=== PATIENT | female | born 1995 | race Caucasian/White ===

== ENCOUNTER 2016-04-30 19:20 | Emergency (ER) | payer SELFPAY ==
[2016-04-30 20:50] VITALS: BMI 22.8
--- NOTE | 2016-04-30 22:00 | US ---
EXAM: US Biophysical Profile Without Non-Stress Testing. CLINICAL HISTORY: 20 years old, female; Pain; Pain indication: Abd pain; ; Additional info: Undocumented pnc TECHNIQUE: Real-time ultrasound of the maternal pelvis for biophysical profile evaluation with image documentation. EXAM DATE/TIME: 04/30/2016 8:51 PM COMPARISON: There are no prior studies for comparison. FINDINGS: Fetus: There is a single intrauterine gestation in cephalic presentation. There is a heart rate of 145 beats per minute. Placenta is anterior. Amniotic fluid index measures 12.34 cm. Using today's criteria, gestational age is 33 weeks 5 days. Estimated weight is 2187 g. Biophysical profile: Fetus was evaluated for movement, breathing, tone and fluid volume. A score of 2/2 was given for each parameter Cervix: Cervix measures approximately 5 cm in length IMPRESSION: Normal 09/17 biophysical profile; 33 week 5 day single cephalic fetus, estimated date of delivery 06/13/16
--- NOTE | 2016-05-03 16:38 | OBHP ---
Datetime: 04/30/2016 22:12 IP Adm Impression: , intrauterine ; No Active Labor IP Adm Impression Other: abd pain IP Admit Plan: Discharge home Pelvic Type - PN: Adequate Extremities - PN: Normal Abdomen - PN: Normal Back - PN: Normal Breast - PN: Not Done Lungs - PN: Normal Heart - PN: Normal Thyroid - PN: Normal General - PN: Normal Weight - Estimated: 2187 FHR - Baseline A Provider: 136 Gestation - Est Wks by US: 33.5 Vital Signs Provider: Reviewed; Within Normal Limits IP Chief Complaint: Maternal discomfort NICHD Decel Fetus A IP Provider: None DTRs - PN: Not Done Datetime: 04/30/2016 20:30 IP Chief Complaint Other: abd pain Admit Comment, IP Provider: Encounter done with the help of Vinja top spotter Ulisses S: [id number] 20 y/o F IUP at 33.4w by LMP presents to the hosp transferred from [facility] of abd pain for the past 4 days. Pain moves from upper abd to lower abd. Denies VB, LOF, nausea or vomiting. Patient [place] been [place] the country for the past 3 weeks and has not had PNC in the [place]. Nesha carlisle was interviewed with and without the present in the room. She was evaluated at [facility] [place] @ 16:00 today. Vaginal exam showed: No able to palpate cervix, no VB or VD. Labs: UA: clear, LeukEst small, WBC 2-5, Bact few, Nitrate neg. CBC: hgb 10.4, hct 29.6, wbc 9.8 PT/INR: 10/0.93 PTT 24.3 CMP: Gluc 88, BUN 6, AST 22, ALT 9 Allergies: NKA Meds: None OB Hx: 2 previous at 8 months and 2 weeks and 2kg Wt as per patient. First, 4 and half y /a and second, 2 and a [age] Y/A. As per patient she received PNC in her country. PMHx: Denies Sxhx: denies SHx: denies etoh, tobacco or drugs PE: See above A: 20 y/o IUP at 33.4w by LMP No active labor P: -Observation - monitoring -BPP Case evaluated with Dr Uche Ko PGY1 OB hospitalist note...earlier I rec'd call from Dr Talamantes from [facility]. Pt was noted to be 28w an d had a manual cervical exam which was reported to be closed. She had lower abd pain so she was brou ght to [facility] for OB evaluation. No F/U/D. No N/V/D. Hx done by me using translating service...pt's was excused and interview continued...pt is safe and had care in her country. SHe does not have any records. SSE: closed EFM no CTX Will obtain BPP/EFW...also she has not sought OB care in [place]...pt given phone numbers for [facility] . [facility] - PN: Normal Presentation-Admit: Vertex IP Fetus A Comments: Sono cephalic Comments, ACOG Physical Exam: speculum exam done by Dr Ivey: Cervix closed. NICHD Variability Prov Fetus A: Moderate 6-25bpm NICHD Accel Fetus A IP Provider: 15X15 FHR Category Provider Fetus A: Category I Genitourinary Exam: Normal
== END 2016-04-30 22:30 | disposition home or self-care (01) ==
LOC: H.EROB2 19:20
DX: O47.03 False labor before 37 completed weeks of gestation, third trimester (principal); Z3A.33 33 weeks gestation of pregnancy

== ENCOUNTER 2016-05-29 10:05 | Inpatient (IN) | payer MEDICAID, OTHER ==
[2016-05-29] MEDS ORDERED: Lactated Ringer's 1,000 ML IV SCH (12:15)
[2016-05-29 13:10] LABS: BASO # 0.1 K/uL (0.0-0.2); BASO % 0.5 % (0.0-2.0); EOS # 0.1 K/uL (0.0-0.7); EOS % 1.1 % (0.0-4.0); HEMATOCRIT 32.4 % (34.0-47.0); LYMPH # 2.3 K/uL (1.0-4.3); MEAN CELL VOLUME 70.4 fl (81.0-99.0); MEAN CORPUSCULAR HEMOGLOBIN 24.1 pg (27.0-31.0); MEAN CORPUSCULAR HGB CONC 34.2 g/dL (33.0-37.0); MEAN PLATELET VOLUME 9.3 fl (7.2-11.7); MONO # 0.8 K/uL (0.0-0.8); MONO % 6.9 % (0.0-10.0); NEUT # 8.1 K/uL (1.8-7.0); NEUT % 71.5 % (50.0-75.0); NRBC % 0.1 % (0.0-0.0); RED CELL DISTRIBUTION WIDTH 16.1 % (11.5-14.5); WHITE BLOOD COUNT 11.3 K/uL (4.8-10.8)
--- NOTE | 2016-05-29 13:41 | OBADHP ---
Datetime: 05/29/2016 11:45 Admit Comment, IP Provider: , EGA btw 36+6 and 37+6wks presents c/o suspected ROM at 09:00, with contractions. Moderate amount of pain. Denies bleeding, reports +FM. LMP: 09/15/15.EDC by LMP: 06/20/16. 3rd trimester u/s with EDC: 06/13/16 care: Some PNC in [facility], has not had care here in [place]. Labs: gc/ct neg/neg. No HIV/RPR/GBS/ hbsag available OBHx: denies hx of GBS, no hx of hospitalization or sepsis. Exam:as above A: IUP at or close to term at 36+6 to 37+6 weeks in active labor P: admit to unit -stat labs: CBC, T_S, HIV/RPR, HbsAg -intitate labor protocol Patient seen and examined with Dr. Jaylon Jara PGY1 OBH ADDENDUM: pt seen _ examined by me with dr. matamoros. she rates pain 8/10. declines epidural. states her la st labor lasted 1hr. denies decreased fm. fob states his had 1pnv in [facility] and no care since. d enies having had us or blood work in [facility]. i: h/o preciptious labor p: expectant vd. Datetime: 05/29/2016 11:30 Pelvic Type - PN: Adequate Extremities - PN: Normal Abdomen - PN: Normal Lungs - PN: Normal Heart - PN: Normal Neurologic - PN: Normal HEENT - PN: Normal General - PN: Normal Presentation-Admit: Vertex FHR - Baseline A Provider: 140 Amniotic Fluid Color, Provider: Clear Membranes, Provider: Ruptured Contraction Comments Provider: q2min Comments, ACOG Physical Exam: moderate distress due to pain plantar surface of b/l feet painted black Pool Provider: Positive Nitrazine Provider: Negative IP Hx Assessment: No Care Vital Signs Provider: Within Normal Limits IP Chief Complaint: Suspected ruptured membranes NICHD Variability Prov Fetus A: Moderate 6-25bpm NICHD Accel Fetus A IP Provider: 15X15 FHR Category Provider Fetus A: Category I NICHD Decel Fetus A IP Provider: None Dilatation, Provider: 5 Effacement, Provider: 60 Station, Provider: 0 Genitourinary Exam: Normal IP Adm Impression: Active labor; Ruptured Membranes IP Admit Plan: Admit to unit; Initiate labor protocol Datetime: 04/30/2016 22:12 IP Adm Impression Other: abd pain Back - PN: Normal Breast - PN: Not Done Thyroid - PN: Normal Weight - Estimated: 2187 Gestation - Est Wks by US: 33.5 DTRs - PN: Not Done Datetime: 04/30/2016 20:30 IP Chief Complaint Other: abd pain IP Fetus A Comments: Sono cephalic
[2016-05-29 13:45] VITALS: BP 103/72; PULSE 85; RESP 18; TEMP 98.4; O2SAT 100
[2016-05-29] MEDS ORDERED: Oxycodone/Acetaminophen 5/325 mg Tab PO PRN ×2 (15:20)
[2016-05-29] MEDS ORDERED: Oxytocin 30 units/LR 500ML 500 ML IV SCH (15:30)
--- NOTE | 2016-05-29 18:39 | OBDS ---
DELIVERY PERSONNEL Delivery Doctor: Dwight Fuller MD Purchasing Assistant: Sahra Bettencourt RN Resident: Patricia Bowen MATERNAL INFORMATION Delivery Anesthesia: None Medications in Delivery: pitocin Estimated Blood Loss (ml): 100 Placenta Cultured: No Maternal Complications: None RN Comments: Baby girl delivered @1505. care given. Skin to skin done. Pt tolerated procedur e well. Pt being recovered in lr #17 Provider Comments: attending: dwight pino resident: jacoby bowen Viable infant female delivered by at 15:05, wt 2900g, Apgars 9/9. Nose and mouth suctioned at perineum. Nuchal cord x 1, reduced upon delivery. Cord clamped and cut, cord blood collected. Placenta delivered spontaneously at 15:10. Uterus firm and appropriately hemostatic. anesth: none EBL: 100mL OBH ADDENDUM: Nuchal cord reduced after delivery neon remained in br with pt path: none complications: none LABOR SUMMARY EDC: 06/19/2016 00:00 No. Babies in Womb: 1 Attempted: No Labor Anesthesia: None LABOR INFORMATION Reason for Induction: Not Applicable Onset of Labor: 05/29/2016 09:00 Complete Dilatation: 05/29/2016 14:45 Oxytocin: N/A Group B Beta Strep: Not Done Antibiotics # of Doses: none Steroids Given: None Reason Steroids Not Administered: Not Applicable MEMBRANES Membranes Rupture Method: Spontaneous Rupture of Membranes: 05/29/2016 09:00 Length of Rupture (hrs): 6.08 Amniotic Fluid Color: Clear Amniotic Fluid Amount: Large Amniotic Fluid Odor: None STAGES OF LABOR Stage 1 hrs: 5 Stage 1 min: 45 Stage 2 hrs: 0 Stage 2 min: 20 Stage 3 hrs: 0 Stage 3 min: 5 Total Time in Labor hrs: 6 Total Time in Labor min: 10 VAGINAL DELIVERY Episiotomy: None Laceration Extension: N/A Laceration Type: None Laceration Repair: Not Applicable Initial Vag Sponge Count: 5 Final Vag Sponge Count: 5 Initial Vag Sharps Count: 0 Final Vag Sharps Count: 0 Sponge Count Correct: Yes Sharps Count Correct: N/A CSECTION DELIVERY Primary Indication: N/A Secondary Indication: N/A CSection Incision: N/A BABY A INFORMATION Infant Delivery Date/Time: 05/29/2016 15:05 Method of Delivery: Vaginal Born in Route : No : N/A Forceps: N/A Vacuum Extraction: N/A Shoulder Dystocia : No SHOULDER DYSTOCIA BABY A Delivery Date/Time: 05/29/2016 15:05 PRESENTATION/POSITION BABY A Presentation: Cephalic Cephalic Presentation: Vertex Breech Presentation: N/A PLACENTA INFORMATION BABY A Placenta Delivery Time : 05/29/2016 15:10 Placenta Method of Delivery: Spontaneous Placenta Status: Delivered SCORES BABY A Heart Rate 1 min: >100 bpm Resp Effort 1 min: Good Cry Reflex Irritability 1 min: Cough or Sneeze or Pulls Away Muscle Tone 1 min: Active Motion Color 1 min: Body [place], Extremities Blue Resuscitation Effort 1 min: N/A SCORE 1 MIN: 9 Heart Rate 5 min: >100 bpm Resp Effort 5 min: Good Cry Reflex Irritability 5 min: Cough or Sneeze or Pulls Away Muscle Tone 5 min: Active Motion Color 5 min: Body [place], Extremities Blue Resuscitation Effort 5 min: N/A SCORE 5 MIN: 9 Resuscitation Effort 10 min: N/A INFORMATION BABY A Gestational Age at Delivery: 37.0 Gestational Status: Term Infant Outcome : Liveborn Condition : Stable Sex: Female IDENTIFICATION/MEDS BABY A ID Band Number: [id number] ID Band Location: Left Leg; Left Arm WEIGHT/LENGTH BABY A Birthweight (gms): 2900 Weight (lb): 6 Weight (oz): 6 CORD INFORMATION BABY A No. Cord Vessels: 3 Nuchal Cord : Around Neck x1, Loose Cord Blood Taken: Yes Suction: Mouth ASSESSMENT BABY A Infant Complications: None Physical Findings at Delivery: Within Normal Limits Respirations: Appears Normal Soakers Supervisor/ALS Called : No Infant Care By: Geri Escoto rn Transferred To: Remains with Mother
[2016-05-29 19:41] LABS: HEMATOCRIT 28.4 % (34.0-47.0); MEAN CELL VOLUME 71.7 fl (81.0-99.0); MEAN CORPUSCULAR HEMOGLOBIN 23.7 pg (27.0-31.0); MEAN CORPUSCULAR HGB CONC 33.1 g/dL (33.0-37.0); WHITE BLOOD COUNT 16.4 K/uL (4.8-10.8)
[2016-05-29] MEDS ORDERED: TDAP Vaccine 0.5 mL Syr IM ONE (21:00)
[2016-05-30 07:30] LABS: BASO # 0.1 K/uL (0.0-0.2); BASO % 0.5 % (0.0-2.0); EOS # 0.3 K/uL (0.0-0.7); EOS % 2.2 % (0.0-4.0); HEMATOCRIT 26.6 % (34.0-47.0); LYMPH # 2.8 K/uL (1.0-4.3); LYMPH % 23.6 % (20.0-40.0); MEAN CELL VOLUME 70.5 fl (81.0-99.0); MEAN CORPUSCULAR HEMOGLOBIN 24.2 pg (27.0-31.0); MEAN CORPUSCULAR HGB CONC 34.3 g/dL (33.0-37.0); MEAN PLATELET VOLUME 9.4 fl (7.2-11.7); MONO % 8.5 % (0.0-10.0); NEUT # 7.7 K/uL (1.8-7.0); NEUT % 65.2 % (50.0-75.0); NRBC % 0.1 % (0.0-0.0); RED CELL DISTRIBUTION WIDTH 15.9 % (11.5-14.5); WHITE BLOOD COUNT 11.8 K/uL (4.8-10.8)
--- NOTE | 2016-05-31 08:31 | OBDCSUM ---
Datetime: 05/31/2016 07:23 Discharged to, Provider: Home Follow up at, Provider: [facility] Disch Instr Activity: Normal activity Disch Instr Diet: Regular Discharge Instructions, Provider: Routine instructions given Discharge Diagnosis, Provider: Term Delivered Discharge Time: 05/31/2016 12:00 Follow up in weeks, Provider: 6 weeks Disch Activity Restrictions: No lifting; No sexual activity; Nothing in vagina - [place], tampon s, douche Discharge Comment, Provider: PPD # 2 Patient feeling well this AM, reports pelvic pain tolerable with medication. Denies dizziness/weak ness/nausea or vomiting. Denies flatus or bowel movement, has normal urine output, tolerating PO diet , no difficulty ambulating. Patient is breast and bottle feeding. No concerns or complaints at this t denisa. PE: VSS Lungs: CTABL Cardiac: S1 S2 rrr, no murmurs/rubs/gallops Abd: bowel sound present, soft, no tenderness to palpation, uterus firm below umbilicus Ext: no edema A: 20yr old s/p P: -Follow up at [facility] in 6 weeks -Take baby to [facility] or teacher tutor of your choice in 2-3 days -Ibuprofen 600mg PO Q6 PRN pain -Feosol 325 mg PO BID -Colace 100 mg PO QD -encouraged breast feeding -no sexual intercourse, nothing in the vagina Snehal Pinedo M.D. PGY1 Contraception after Delivery: Foam/Condoms
--- NOTE | 2016-05-31 08:31 | OBPPN ---
Datetime: 05/31/2016 07:15 PP Pain Prov: Within normal limits PP Nausea Prov: Denies PP Flatus Prov: No PP BM Prov: No PP Heart Prov: Normal PP Lungs Prov: Normal PP Abdomen/Uterus Prov: Normal PP Lochia Prov: Normal PP CVA Tenderness Prov: Normal PP Extremities Prov: Normal PP C/S Incision Prov: Not Applicable PP Progress Prov: Normal PP Impression Prov: Normal progression PP Plan Prov: Continue present management PP Progress Note Prov: PPD # 2 Patient feeling well this AM, reports pelvic pain tolerable with medication. Denies dizziness/weak ness/nausea or vomiting. Denies flatus or bowel movement, has normal urine output, tolerating PO diet , no difficulty ambulating. Patient is breast and bottle feeding. No concerns or complaints at this t denisa. PE: VSS Lungs: CTABL Cardiac: S1 S2 rrr, no murmurs/rubs/gallops Abd: bowel sound present, soft, no tenderness to palpation, uterus firm below umbilicus Ext: no edema A: 20yr old s/p P: -Continue present management -encouraged ambulation -pain management -encouraged breast feeding -Dulcolax suppository 10mg MN once Snehal Pinedo M.D. -PGY1 OB Hospitalist Addendum: Pt seen and examined by me. Agree w/ above. PPD 2 s/p , doing well. Discharge home today. (ES) IP PP Procedures: None Datetime: 05/30/2016 06:22 Vital Signs Provider PP: Reviewed; Within Normal Limits
== END 2016-05-31 18:10 | disposition home or self-care (01) | DRG 373 ==
LOC: H.EROB2 10:05 → H.L&D 11:34 → H.OB/GYN 17:44
PROVIDERS: ADMIT Obstetrics & Gynecology; ATTEND Obstetrics & Gynecology
PROC: 10E0XZZ Delivery of Products of Conception, External Approach (ICD-10-PCS; principal; 2016-05-29)
PROC: 4A1HXCZ Monitoring of Products of Conception, Cardiac Rate, External Approach (ICD-10-PCS; 2016-05-29)
DX: O69.81X0 Labor and delivery complicated by cord around neck, without compression, not applicable or unspecified (principal); Z37.0 Single live birth; Z3A.37 37 weeks gestation of pregnancy

== ENCOUNTER 2018-03-13 11:04 | Emergency (ER) | payer MEDICAID, OTHER ==
[2018-03-13 11:57] VITALS: BMI 25.8
[2018-03-13] MEDS ORDERED: Simethicone 40 mg/0.6 ml Liquid (30 ml) PO ONE (11:59)
[2018-03-13] MEDS: Lactated Ringer's 1,000 ML IV SCH ×2 (13:15→14:23)
[2018-03-13] MEDS ORDERED: Simethicone 80 mg Chewtab PO ONE (13:30)
[2018-03-13 14:25] LABS: SQUAMOUS EPITHIAL 1 /hpf (0-5); URINE BILIRUBIN NEGATIVE (NEGATIVE); URINE BLOOD NEGATIVE (NEGATIVE); URINE CLARITY CLEAR (Clear); URINE COLOR STRAW (YELLOW); URINE GLUCOSE (UA) NEG (NEGATIVE); URINE LEUKOCYTE ESTERASE NEG Leu/uL (Negative); URINE PROTEIN NEGATIVE (NEGATIVE); URINE UROBILINOGEN 0.2-1.0 mg/dL (0.2-1.0)
[2018-03-13 14:31] LABS: BASO # 0.1 K/uL (0.0-0.2); BASO % 0.5 % (0.0-2.0); EOS # 0.3 K/uL (0.0-0.7); EOS % 2.8 % (0.0-4.0); HEMOGLOBIN 11.3 g/dL (12.0-16.0); LYMPH # 2.3 K/uL (1.0-4.3); LYMPH % 19.2 % (20.0-40.0); MEAN CELL VOLUME 75.7 fl (81.0-99.0); MEAN CORPUSCULAR HEMOGLOBIN 26.2 pg (27.0-31.0); MEAN CORPUSCULAR HGB CONC 34.6 g/dL (33.0-37.0); MONO # 0.8 K/uL (0.0-0.8); MONO % 6.5 % (0.0-10.0); NEUT # 8.6 K/uL (1.8-7.0); NRBC % 0.1 % (0.0-0.0); RBC 4.3 Mil/uL (3.80-5.20); RED CELL DISTRIBUTION WIDTH 13.9 % (11.5-14.5)
[2018-03-13 14:35] LABS: WHITE BLOOD COUNT 12.1 K/uL (4.8-10.8)
--- NOTE | 2018-03-13 15:25 | US ---
Date of service: 03/13/2018 PROCEDURE: OB Pelvic Ultrasound HISTORY: 28 weeks gestation, no care LMP: 06/01/2017 suggesting estimated gestational age of 28 weeks 4 days. COMPARISON: None available. FINDINGS: UTERUS: Gestational sac: Single intrauterine gestation in cephalic lie with an anterior fundal placenta and no evidence of previa or abruption. The following mean parameters were obtained: Biparietal diameter 7.03 cm corresponds to 28 weeks 2 days. Head circumference 26.64 cm corresponds 29 weeks 0 days. Abdominal circumference 23.83 cm corresponds to 20 weeks 1 day. Femur length 5.32 cm corresponds to 20 weeks 2 days. Heart rate: 136 bpm. age (Ultrasound estimated): 28 weeks 3 days Quin-gestational hemorrhage: None appreciated. Date of delivery (Ultrasound estimated) : 06/02/2018 anatomical survey not performed in this emergent setting. Consider elective ultrasonography for anatomical survey as clinically warranted. No discrete lesion is seen related to the visualized myometrium. Cervical length measures 4.25 cm with a closed internal os. Neither ovary is identified. No definitive suspicious adnexal pathology appreciable. FREE FLUID: None. OTHER FINDINGS: None. IMPRESSION: Single viable intrauterine gestation in cephalic lie with average ultrasonic age 28 weeks 3 days concordant with LMP derived dates of 20 weeks 4 days. Please see discussion above.
--- NOTE | 2018-03-13 16:06 | OBHP ---
Datetime: 03/13/2018 12:08 IP Adm Impression: , intrauterine ; No Active Labor IP Chief Complaint Other: Nausea/vomiting IP Admit Plan: Observation/Evaluation Admit Comment, IP Provider: HPI: Ladonna is a 22 year old with no care who presents to L _D for evaluation of abdominal pain, nausea and vomiting. MOISE of 06/01/18 based on her LMP, no US or c onfirmation of yet during this gestation. Reports her pain began last night and she has had severeal episodes of vomiting. Her biggest complaint is L lower R pain and L shoulder pain. Also end orsing some dysuria and diarrhea. No fevers, chills, myalgias. History 3 previous NSVDs, 2 in [facility], her last delivered here PMH Denies PSH Denies Medications None Allergies NKDA Social No alcohol, tobacco or drug use PHYSICAL EXAM Vitals reviewed See exam section ASSESSMENT/PLAN: 22 year old at approximately 28 weeks with no care presents with si gns/symptoms suspicious for viral gastroenteritis. Her shoulder pain is likely referred pain from ehsan phragmatic irritation. Spleen was not palpable on exam. - IV hydration with LR - 4mg IV Zofran - Simethicone for gas pain - We will draw labs while she is here - OB dating US ordered - Spoke with Dr. Ruffin, the [facility] will take the patient for care she has been seen there i n the past Christen Issa MD OB Fellow OB Hospitalist note: Pt seen by me garret OB fellow. Agree wtih note. I spoke with her . Th ey will go [facility] to [facility] off to apply and bee seen in 1-2w at [facility] - arrangements made i th Dr Ruffin. MAHNDO Lungs - PN: Normal Heart - PN: Normal General - PN: Normal FHR - Baseline A Provider: 130 Comments, ACOG Physical Exam: Abdomen: mild tenderness to palption in the LLQ, along the R inferior border of the rib cage and in the suprapubic region Gestation - Est Wks by US: 28.4 Vital Signs Provider: Reviewed; Within Normal Limits NICHD Variability Prov Fetus A: Moderate 6-25bpm
--- NOTE | 2018-03-13 16:08 | OBDCSUM ---
Datetime: 03/13/2018 14:45 Discharged to, Provider: Home Follow up at, Provider: [facility] Disch Instr Activity: Normal activity; May be up to bathroom; May be up for meals; May Shower Disch Instr Diet: Regular Discharge Time: 03/13/2018 14:47 Follow up in weeks, Provider: Pt to make appnt with DR Laly Sweeney Disch Referrals: None Discharge Diagnosis Prov Other: Gastroenteritis - no prental care 28w
[2018-03-13 21:28] LABS: RAPID PLASMA REAGIN NONREACTIVE (NONREACTIVE)
[2018-03-13 21:51] VITALS: BP 110/60; PULSE 89
== END 2018-03-13 14:44 | disposition home or self-care (01) ==
LOC: H.EROB2 11:04 → H.L&D 11:58 → H.EROB2 14:44
DX: O21.0 Mild hyperemesis gravidarum (principal); O26.93 Pregnancy related conditions, unspecified, third trimester; R10.2 Pelvic and perineal pain; Z3A.28 28 weeks gestation of pregnancy
CPT/HCPCS: 76815; 81003; 85025; 86592; 86703; 86762; 86850; 86900; 87340; 96374; 99284; J2405; J7120

== ENCOUNTER 2018-05-17 17:24 | Inpatient (IN) | payer MEDICAID, OTHER ==
[2018-05-17] MEDS ORDERED: Lactated Ringer's 1,000 ML IV ONE ×2 (18:29→18:31)
[2018-05-17 18:30] VITALS: BMI 24.0
[2018-05-17] MEDS ORDERED: OXYTOCIN/0.9 % NS 20 UNIT/1,000 ML BAG IV ONE ×2 (18:32→21:40)
[2018-05-17] MEDS ORDERED: Oxytocin 30 UNIT in NS 500 ml 30 UNITS/500 ML BAG IV ONE ×2 (18:32→21:40)
[2018-05-17] MEDS ORDERED: Fentanyl/Bupivacaine HCl 250 ML EPI ONE (18:37)
[2018-05-17 19:09] LABS: BASO # 0.1 K/uL (0.0-0.2); BASO % 0.4 % (0.0-2.0); EOS # 0.1 K/uL (0.0-0.7); EOS % 1.2 % (0.0-4.0); HEMOGLOBIN 10.7 g/dL (12.0-16.0); LYMPH # 2.9 K/uL (1.0-4.3); LYMPH % 23.7 % (20.0-40.0); MEAN CELL VOLUME 67.8 fl (81.0-99.0); MEAN CORPUSCULAR HEMOGLOBIN 22.9 pg (27.0-31.0); MEAN CORPUSCULAR HGB CONC 33.7 g/dL (33.0-37.0); MEAN PLATELET VOLUME 8.4 fl (7.2-11.7); MONO # 0.9 K/uL (0.0-0.8); NEUT # 8.4 K/uL (1.8-7.0); NEUT % 67.7 % (50.0-75.0); RBC 4.7 Mil/uL (3.80-5.20); RED CELL DISTRIBUTION WIDTH 16.2 % (11.5-14.5); WHITE BLOOD COUNT 12.4 K/uL (4.8-10.8)
--- NOTE | 2018-05-17 19:36 | OBHP ---
Datetime: 05/17/2018 18:04 IP Adm Impression: Term, intrauterine ; Active labor IP Admit Plan: Admit to unit; Initiate labor protocol Admit Comment, IP Provider: Anahy: [id number] Pt is a 22 yo F 37.6wks LMP 08/16/17 U/S done on 03/13/17 pt has not had any care. P t here for contractions since 5am Q 10 mins. Denies vaginal bleeding or LOF. Reports good move ments. Denies dizziness, fever, chills, blurry vision, headache, CP, SOB, N/V/D/C or dysuria. PNP: No care was in process of [facility] care to see Dr. 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 PMHx:Denies Meds: Denies, Not taking PNV Allergies:NKDA FHx: Denies Surg Hx: Denies Social Hx: Denies tobacco, alcohol, or drug use Labs: unknown no care PE: Gen: NAD Heent: EOMI, NCAT Card: RRR, + S1S2 Resp: CTA B/L, no wheezes, rales or rhonchi Abdom: Soft gravid, nontender to palpation, + BS throughout Extrem: No edema FH monitorin's, moderate variability, 15x15 accels, no decels Bedside U/S- vertex Bimanual 6cm/70%/-3, bulging Bedside U/S- vertex A/P: Pt is a 22 yo F 37.6wks LMP 08/16/17 MOISE based U/S done on 03/13/17, Active labor Reassuring maternal status Admit to L _ D Monitor maternal VS NPO, Pitocin, IVF's Case reviewed and discussed with Dr. Rohan Rehman PGY1 Attending Note: Patient was seen and examined with resident and I agree with the above assessment. Extremities - PN: Normal Abdomen - PN: Normal Lungs - PN: Normal Heart - PN: Normal Neurologic - PN: Normal HEENT - PN: Normal General - PN: Normal Presentation-Admit: Vertex FHR - Baseline A Provider: 140's Membranes, Provider: Prem Soto, ACOG Physical Exam: PE: Gen: NAD Heent: EOMI, NCAT Card: RRR, + S1S2 Resp: CTA B/L, no wheezes, rales or rhonchi Abdom: Soft gravid, nontender to palpation, + BS throughout Extrem: No edema FH monitorin's, moderate variability, 15x15 accels, no decels Bedside U/S- vertex IP Hx Assessment: No Care EGA AdmitDate IP: 37.6 Vital Signs Provider: Reviewed; Within Normal Limits IP Chief Complaint: Uterine contractions; Maternal discomfort NICHD Variability Prov Fetus A: Moderate 6-25bpm NICHD Accel Fetus A IP Provider: 15X15 FHR Category Provider Fetus A: Category I NICHD Decel Fetus A IP Provider: None Dilatation, Provider: 6 Effacement, Provider: 70 Station, Provider: -3 Genitourinary Exam: Normal
[2018-05-17] MEDS ORDERED: Lidocaine 1% Inj (20ml) ONE (19:47)
--- NOTE | 2018-05-17 21:39 | OBDS ---
MATERNAL INFORMATION Provider Comments: Delivered a live baby girl at 9:24 PM the baby was bulb suctioned on the perineum then transferred to the maternal chest. The cord was clamped and cut 3 vessels noted cord blood was obtained and sent to the lab. Placenta was delivered at 9:27 PM intact, the estimated blood loss wa s 100 cc, there were no vaginal lacerations. The mother tolerated the procedure well the baby went t o the well baby nursery with Apgars of 9/9 2670 g LABOR SUMMARY EDC: 06/01/2018 00:00 MEMBRANES Membranes Rupture Method: Artificial Amniotic Fluid Color: Clear Amniotic Fluid Amount: Small PRESENTATION/POSITION BABY A Presentation: Cephalic
[2018-05-17] MEDS ORDERED: Oxycodone/Acetaminophen 5/325 mg Tab PO PRN ×2 (21:40→22:35)
[2018-05-18 06:32] LABS: BASO # 0.1 K/uL (0.0-0.2); BASO % 0.5 % (0.0-2.0); EOS # 0.1 K/uL (0.0-0.7); EOS % 0.7 % (0.0-4.0); HEMOGLOBIN 9.2 g/dL (12.0-16.0); LYMPH # 2.8 K/uL (1.0-4.3); LYMPH % 18.5 % (20.0-40.0); MEAN CELL VOLUME 69.7 fl (81.0-99.0); MEAN CORPUSCULAR HEMOGLOBIN 23.6 pg (27.0-31.0); MEAN CORPUSCULAR HGB CONC 33.9 g/dL (33.0-37.0); MEAN PLATELET VOLUME 8.5 fl (7.2-11.7); MONO # 1.3 K/uL (0.0-0.8); MONO % 8.4 % (0.0-10.0); NEUT # 10.9 K/uL (1.8-7.0); NEUT % 71.9 % (50.0-75.0); NRBC % 0.1 % (0.0-0.0); RBC 3.89 Mil/uL (3.80-5.20); RED CELL DISTRIBUTION WIDTH 16.2 % (11.5-14.5); WHITE BLOOD COUNT 15.2 K/uL (4.8-10.8)
--- NOTE | 2018-05-18 11:49 | OBPPN ---
Datetime: 05/18/2018 09:15 PP Pain Prov: Within normal limits PP Nausea Prov: Denies PP Flatus Prov: Yes PP BM Prov: Yes PP Breasts Prov: Not Done PP Heart Prov: Normal PP Lungs Prov: Normal PP Abdomen/Uterus Prov: Normal PP Lochia Prov: Normal PP Vulva/Perineum Prov: Not Done PP CVA Tenderness Prov: Normal PP Extremities Prov: Normal PP C/S Incision Prov: Not Applicable PP Progress Prov: Normal PP Comments Phys Exam Prov: See note PP Impression Prov: Normal progression PP Plan Prov: Continue present management PP Progress Note Prov: S: 22 yo female s/p NVD on 05/17/18 PPD1, Patient seen and examined a t bedside. Pain control with medication. Patient ambulating with no difficulty. Tolerating regular di et without N/V. Lochia is same as menses in volume. Patient denies MINER, blurry vision, CP, palpitation s, SOB, chills dysuria or other complaint at this time. appropriately. O: VS WNL GEN: NAD HEENT: NAD RESP: CTA b/l CV: RRR, S1 S2 normal, no murmurs ABD: Soft, uterus firm at umbilical level. Mild tender to touch, BS +. EXT: LE no edema, Ernesto's neg A/P 22 yo female NVD on 05/16/18 PPD1, with normal POD progression. Patient Hb 9.2/37.1, bre ent is hemodynamically stable and asymptomatic Plan -OOB and Ambulation encouraged -Regular diet - encouraged -PNV 1 tab QD -Pain management -Continue present management YSrondai PGY1 Case discussed with Attending Addendum by Dr. Steel: I have evaluated patient independently and I agree with the above Vital Signs Provider PP: Reviewed; Within Normal Limits
[2018-05-18 16:55] LABS: RAPID PLASMA REAGIN NONREACTIVE (NONREACTIVE)
[2018-05-19] MEDS ORDERED: Measles, Mumps, and Rubella 0.5 ML VIAL SC ONE (10:19)
--- NOTE | 2018-05-19 16:43 | OBDCSUM ---
Datetime: 05/19/2018 08:39 Discharged to, Provider: Home Follow up at, Provider: [facility] Disch Instr Activity: Normal activity; May be up to bathroom; May be up for meals; May Shower Disch Instr Diet: Regular Discharge Instructions, Provider: Routine instructions given Discharge Diagnosis, Provider: Term Delivered Discharge Time: 05/19/2018 14:05 Follow up in weeks, Provider: 1-2 day for new born, then 4-6 week for post Disch Activity Restrictions: No exercising; Minimize stair-climbing; No sexual activity; Nothing in vagina - [place], tampons, douche Discharge Comment, Provider: 30 YO female status post NVD at GA 37.6 wk, had baby girl on 05/17/18. : female, Wt. 2670 gm, 9/9 Post- D/C Summary: 30 YO female status post NVD at GA 33.7 wk. Intrapartum: EBL 100 ml, no vaginal lacerations. No complications during post- period, today on her day 2 PPD with normal progression . Lochia is less than menses. Pt able to pass flatus, has passed a bowel movement. Voiding well and able to ambulate without difficulty. Tolerating regular diet w/o N/V. Fun dus firm below umbilicus level. Pt is hemodynamically stable. H/H: 9.2/27.1 Discharge Instructions given to patient: Encourage PNV 1 tab po q/day Ibuprofen 400 mg 1 tab po prn q4-6 if moderate pain. Ambulatory with caution, nothing per vagina/sex for 4 weeks, no heavy lifting, avoid stairs, if ex cessive bleeding or fever without relief from Tylenol go to ED ED precautions: If excessive bleeding, pain that does not get relief, fever >100.4, palpitations, SOB, CP or other concerning symptom go to the ED. PT was urged if feeling sad, mood swing, depression, neglect of baby, suicidal thoughts, homicidal thoughts go to ER or call 911 for help Follow-up with [facility] in 4 week for post- check. Onur PGY1 Case discussed with DR lam Contraception after Delivery: Undecided Datetime: 03/13/2018 14:45 Follow up at, Provider: [facility] Follow up in weeks, Provider: 4 to 6 weeks.
--- NOTE | 2018-05-19 16:43 | OBPPN ---
Datetime: 05/19/2018 08:38 PP Nausea Prov: Present PP Flatus Prov: Yes PP BM Prov: Yes PP Breasts Prov: Not Done PP Heart Prov: Normal PP Lungs Prov: Normal PP Abdomen/Uterus Prov: Normal PP Lochia Prov: Normal PP Vulva/Perineum Prov: Not Done PP CVA Tenderness Prov: Normal PP Extremities Prov: Normal PP C/S Incision Prov: Not Applicable PP Progress Prov: Normal PP Comments Phys Exam Prov: See note PP Impression Prov: Normal progression PP Plan Prov: Discharge PP Progress Note Prov: S: 22 YO s/p NVD on 05/17/18 PPD2, Patient seen and examined at [facility]. Pain control with medication. Patient ambulating with no difficulty. Tolerating regular diet with out N/V. Lochia is less as menses in volume. Patient denies MINER, blurry vision, CP, palpitations, SOB, chills dysuria or other complaint at this time. appropriately. O: VS WNL GEN: NAD HEENT: NAD RESP: CTA b/l CV: RRR, S1 S2 normal, no murmurs ABD: Soft, uterus firm at umbilical level. Mild tender to touch, BS +. EXT: LE no edema, Ernesto's neg A/P 22 YO female NVD on 05/16/18 PPD2, with normal progression. Patient Hb 9.2/27.1 , patient is hemodynamically stable and asymptomatic Plan -OOB and Ambulation encouraged -Regular diet - encouraged -PNV 1 tab QD -Pain management -Continue present management -DC planning today Onur PGY1 Case discussed with Dr Ivey OB Hospitalist on-call : Pt was seen and will follow up at [facility] in 6w (Rubella pending) MAXINE Vital Signs Provider PP: Reviewed; Within Normal Limits
[2018-05-19 18:11] VITALS: BP 92/55; PULSE 76; RESP 20; TEMP 98.7; O2SAT 100
--- NOTE | 2018-05-20 11:03 | OBADHP ---
Datetime: 05/17/2018 18:04 Admit Comment, IP Provider: Anahy: Coretta Pt is a 22 yo F 37.6wks LMP 08/16/17 U/S done on 03/13/17 pt has not had any care. P t here for contractions since 5am Q 10 mins. Denies vaginal bleeding or LOF. Reports good move ments. Denies dizziness, fever, chills, blurry vision, headache, CP, SOB, N/V/D/C or dysuria. PNP: No care was in process of [facility] care to see Dr. 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's PMHx:Denies Meds: Denies, Not taking PNV Allergies:NKDA FHx: Denies Surg Hx: Denies Social Hx: Denies tobacco, alcohol, or drug use Labs: unknown no care PE: Gen: NAD Heent: EOMI, NCAT Card: RRR, + S1S2 Resp: CTA B/L, no wheezes, rales or rhonchi Abdom: Soft gravid, nontender to palpation, + BS throughout Extrem: No edema FH monitorin's, moderate variability, 15x15 accels, no decels Bedside U/S- vertex Bimanual 6cm/70%/-3, bulging Bedside U/S- vertex A/P: Pt is a 22 yo F 37.6wks LMP 08/16/17 [place] based U/S done on 03/13/17, Active labor Reassuring maternal status Admit to L _ D Monitor maternal VS NPO, Pitocin, IVF's Case reviewed and discussed with Dr. Rohan Rehman PGY1 Attending Note: Patient was seen and examined with resident and I agree with the above assessment. Extremities - PN: Normal Abdomen - PN: Normal Lungs - PN: Normal Heart - PN: Normal Neurologic - PN: Normal HEENT - PN: Normal General - PN: Normal Presentation-Admit: Vertex FHR - Baseline A Provider: 140's Membranes, Provider: Prem Soto, ACOG Physical Exam: PE: Gen: NAD Heent: EOMI, NCAT Card: RRR, + S1S2 Resp: CTA B/L, no wheezes, rales or rhonchi Abdom: Soft gravid, nontender to palpation, + BS throughout Extrem: No edema FH monitorin's, moderate variability, 15x15 accels, no decels Bedside U/S- vertex IP Hx Assessment: No Care Vital Signs Provider: Reviewed; Within Normal Limits IP Chief Complaint: Uterine contractions; Maternal discomfort NICHD Variability Prov Fetus A: Moderate 6-25bpm NICHD Accel Fetus A IP Provider: 15X15 FHR Category Provider Fetus A: Category I NICHD Decel Fetus A IP Provider: None Dilatation, Provider: 6 Effacement, Provider: 70 Station, Provider: -3 Genitourinary Exam: Normal EGA AdmitDate IP: 37.6 IP Adm Impression: Term, intrauterine ; Active labor IP Admit Plan: Admit to unit; Initiate labor protocol Datetime: 03/13/2018 12:08 IP Chief Complaint Other: Nausea/vomiting Gestation - Est Wks by US: 28.4
== END 2018-05-19 14:05 | disposition home or self-care (01) | DRG 560 ==
LOC: H.EROB2 17:24 → H.L&D 18:30 → H.OB/GYN 22:50
PROVIDERS: ADMIT Obstetrics & Gynecology; ATTEND Obstetrics & Gynecology
PROC: 10E0XZZ Delivery of Products of Conception, External Approach (ICD-10-PCS; principal; 2018-05-17)
PROC: 4A1HXCZ Monitoring of Products of Conception, Cardiac Rate, External Approach (ICD-10-PCS; 2018-05-17)
DX: O80 Encounter for full-term uncomplicated delivery (principal); Z37.0 Single live birth; Z3A.37 37 weeks gestation of pregnancy